=== PATIENT | female | born 1965 ===

== ENCOUNTER 2019-03-16 15:50 | Emergency (ER) | payer OTHER ==
[~2019-03-16] VITALS: Ht 162.6 cm; Wt 65.8 kg
[2019-03-16] MEDS ORDERED: CLARITIN10 M1 (16:07)
[2019-03-16] MEDS ORDERED: MUCINEX100 MG (16:08)
[2019-03-16] MEDS ORDERED: SOLARAZE100 GM (16:08)
[2019-03-16] MEDS ORDERED: CYTOMEL50 MCG (16:08)
== END 2019-03-16 19:05 | disposition home or self-care (01) ==
LOC: ER 15:50
DX: B34.9 Viral infection, unspecified (principal)